=== PATIENT | female | born 1965 | race Hispanic/Latino ===

== ENCOUNTER → 2018-03-19 | Outpatient (CLI) | payer MEDICAID ==
[~2018-03-19] MED LIST: ACET-2743 PO; BUDE10.2 IH; CARV3.12 PO; CHOL100018 PO; FERS325 PO; FOLI1TAB82 PO; FURO80TA3 PO; MONT10TA24 PO; SODI650T PO; TRAM50TA4 PO
== END | disposition home or self-care (01) ==
LOC: SHCH 08:30
PROVIDERS: ATTEND Internal Medicine Cardiovascular Disease
DX: I51.7 Cardiomegaly (principal); I31.3 Pericardial effusion (noninflammatory)
CPT/HCPCS: 93306

== ENCOUNTER → 2018-03-26 | Outpatient (CLI) | payer MEDICAID ==
[~2018-03-26] MED LIST changes: +REGADENOSON 0.4 MG/5 ML PF SYG IVP SCH
== END | disposition home or self-care (01) ==
LOC: SHCH 08:23
PROVIDERS: ATTEND Internal Medicine Cardiovascular Disease
DX: I25.5 Ischemic cardiomyopathy (principal)
CPT/HCPCS: 78452; 93017; 96374; A9500 ×2; J2785

== ENCOUNTER 2018-04-19 15:10 | Inpatient (IN) | payer MEDICAID ==
[~2018-04-19] VITALS: Ht 160 cm; Wt 68.7 kg
[~2018-04-19 15:10] MED LIST changes: -REGADENOSON 0.4 MG/5 ML PF SYG IVP SCH
[2018-04-19] MEDS ORDERED: ACETAMINOPHEN EXTRA STRENGTH 500 MG TABLET ONE (15:35)
[2018-04-19 15:42] LABS: BASOPHILS % (AUTO) 0.4 % (0.0-5.0); HEMATOCRIT 33.8 % (36-48); LYMPHOCYTES % (AUTO) 13.3 % (21.0-51.0); MEAN CORPUSCULAR HEMOGLOBIN 31.2 pg (27.0-33.0); MEAN CORPUSCULAR HGB CONC 33.2 g/dL (32.0-36.0); MEAN CORPUSCULAR VOLUME 93.8 fL (79-99); MONOCYTES % (AUTO) 6.6 % (3.0-13.0); NEUTROPHILS % (AUTO) 76.7 % (40.0-77.0); PLATELET COUNT (AUTO) 199 K/uL (130-400); RED BLOOD CELL COUNT(AUTO) 3.61 MIL/uL (4.00-5.50); RED CELL DISTRIBUTION WIDTH 15.2 % (11.0-15.5); WHITE BLOOD COUNT (AUTO) 8.9 K/uL (4.8-10.8)
[2018-04-19 15:46] LABS: CREATININE 2.7 mg/dL (0.5-1.5); POTASSIUM 4.4 mmol/L (3.5-5.1)
[2018-04-19 15:50] LABS: ALBUMIN 3.5 g/dL (3.5-5.0); BILIRUBIN,TOTAL 0.5 mg/dL (0.2-1.0); TOTAL PROTEIN, SERUM 8.5 g/dL (6.0-8.3)
[2018-04-19 16:11] LABS: INR 0.98 (0.85-1.15); PARTIAL THROMBOPLASTIN TIME 29.9 SEC (26.3-35.5); PROTHROMBIN TIME 10.3 SEC (9.6-11.6)
[2018-04-19 17:44] LABS: APPEARANCE,URINE Clear (CLEAR); BILIRUBIN,URINE Negative (NEGATIVE); COLOR,URINE Yellow (YELLOW); GLUCOSE, URINE (UA) TRACE mg/dL (NEGATIVE); KETONES,URINE Negative (NEGATIVE); LEUKOCYTE ESTERASE ,URINE Negative (NEGATIVE); NITRATE,URINE Negative (NEGATIVE); OCCULT BLOOD,URINE Nonhemolyzed Trace (NEGATIVE); PROTEIN,URINE 300 (NEGATIVE); UROBILINOGEN,URINE 0.2 mg/dL (0.2-1.0)
[2018-04-19] MEDS ORDERED: SODIUM CHLORIDE 0.9% 1000ML 1,000 ML IV ONE (18:17)
[2018-04-19] MEDS ORDERED: CEFTRIAXONE SODIUM 1 GM ONE (18:17)
[2018-04-19 18:26] LABS: BACTERIA,URINE Rare /HPF (None Seen); WBC,URINE 0-1 /HPF (0-1)
[2018-04-19] MEDS: SODIUM CHLORIDE 0.9% 1000ML 1,000 ML IV SCH (19:15)
[2018-04-19] MEDS ORDERED: COMPOUND PO MISCELLANEOUS 1 EACH MISC MISC PRN (19:15)
[2018-04-19] MEDS ORDERED: FUROSEMIDE 10 MG/ML 2ML VIAL ONE (20:29)
[2018-04-19] MEDS ORDERED: AZITHROMYCIN 500MG+NS 250ML 250 ML IV ONE (20:30)
[2018-04-19] MEDS: OSELTAMIVIR SUSP 15 MG/ML (6 CAPS/29ML) PO SCH ×2 (21:00)
[2018-04-19] MEDS: INSULIN R PO SS1 SQ SCH (21:00)
[2018-04-19] MEDS ORDERED: PANTOPRAZOLE SODIUM 40 MG TABLET.DR PO ONE (22:02)
[2018-04-19] MEDS ORDERED: ENOXAPARIN SODIUM 30 MG/0.3 ML SQ ONE (22:02)
--- NOTE | 2018-04-19 23:05 | NUR ---
ADMIT PATIENT ARRIVED TO ROOM FROM ED AAOX3. NO COMPLAINTS OF CHEST PAIN OR SOB, BUT PATIENT DOES COMPLAIN OF CHRONIC BACK PAIN THAT SHE TAKES TRAMADOL [address] RADFORD PAGED TO INFORM THAT PATIENT WOULD LIKE ORDER TO CONTINUE TRAMADOL PO. AWAITING CALL BACK.
[2018-04-19 23:24] VITALS: BP 112/68
[2018-04-20] MEDS ORDERED: AZITHROMYCIN 500 MG in SODIUM CHLORIDE 0.9% 250 ML IV SCH ×2
[2018-04-20 04:32] LABS: HEMATOCRIT 27.2 % (36-48); MEAN CORPUSCULAR HEMOGLOBIN 31.5 pg (27.0-33.0); MEAN CORPUSCULAR HGB CONC 33.7 g/dL (32.0-36.0); MEAN CORPUSCULAR VOLUME 93.3 fL (79-99); PLATELET COUNT (AUTO) 150 K/uL (130-400); RED BLOOD CELL COUNT(AUTO) 2.92 MIL/uL (4.00-5.50); RED CELL DISTRIBUTION WIDTH 14.9 % (11.0-15.5); WHITE BLOOD COUNT (AUTO) 6.3 K/uL (4.8-10.8)
[2018-04-20 04:50] LABS: HEMOGLOBIN A1C 8.9 % (4.0-6.0)
[2018-04-20 04:55] LABS: ALBUMIN 2.7 g/dL (3.5-5.0); BILIRUBIN,TOTAL 0.3 mg/dL (0.2-1.0); CREATININE 2.8 mg/dL (0.5-1.5); MAGNESIUM 1.9 mg/dL (1.80-2.40); PHOSPHORUS 4.9 mg/dL (2.5-4.9); POTASSIUM 3.9 mmol/L (3.5-5.1); TOTAL PROTEIN, SERUM 6.7 g/dL (6.0-8.3)
[2018-04-20] MEDS: INSULIN R PO SS1 SQ SCH ×4 (05:59→20:22)
[2018-04-20 08:01] VITALS: BP 132/68
[2018-04-20] MEDS: FUROSEMIDE 10 MG/ML 2ML VIAL IV SCH ×2 (08:31→20:21)
[2018-04-20] MEDS: ENOXAPARIN SODIUM 30 MG/0.3 ML SQ SCH (08:32)
[2018-04-20] MEDS: PANTOPRAZOLE SODIUM 40 MG TABLET.DR PO SCH (08:32)
[2018-04-20] MEDS: SODIUM CHLORIDE 0.9% 1000ML 1,000 ML IV SCH ×2 (08:35→20:23)
[2018-04-20] MEDS: OSELTAMIVIR SUSP 15 MG/ML (6 CAPS/29ML) PO SCH ×4 (08:35→20:25)
[2018-04-20] MEDS ORDERED: FUROSEMIDE 10 MG/ML 2ML VIAL IVP SCH (09:00)
[2018-04-20 11:02] VITALS: BP 121/66
[2018-04-20 16:20] VITALS: BP 145/79
--- NOTE | 2018-04-20 17:00 | NUR ---
cm note met with patient and states resides athome with grandchildren, is independent with adls and self care. use cane for ambulation. has adult daughters and friends that assist. states no dc needs. dc plan is back to home. Addendum: 04/20/18 at 1702 by AG CHAMBERS CM Amended: Links added.
[2018-04-20] MEDS: AZITHROMYCIN 500MG+NS 250ML 250 ML IV SCH (17:56)
[2018-04-20] MEDS: CEFTRIAXONE SODIUM 1 GM IVP SCH (17:57)
[2018-04-20 19:06] VITALS: BP 153/84
[2018-04-20] MEDS: ACETAMINOPHEN 325 MG TAB PO PRN (20:22)
[2018-04-20 21:24] LABS: % IRON SATURATION 23.9 % (22-44)
[2018-04-20 23:04] VITALS: BP 139/82
[2018-04-21] MEDS: SODIUM CHLORIDE 0.9% 1000ML 1,000 ML IV SCH ×3 (01:15→20:35)
[2018-04-21 03:26] VITALS: BP 154/90
[2018-04-21 04:25] LABS: BASOPHILS % (AUTO) 0.8 % (0.0-5.0); HEMATOCRIT 30.8 % (36-48); LYMPHOCYTES % (AUTO) 25.8 % (21.0-51.0); MEAN CORPUSCULAR HEMOGLOBIN 31.7 pg (27.0-33.0); MEAN CORPUSCULAR HGB CONC 34.1 g/dL (32.0-36.0); MEAN CORPUSCULAR VOLUME 92.9 fL (79-99); NEUTROPHILS % (AUTO) 58.4 % (40.0-77.0); PLATELET COUNT (AUTO) 162 K/uL (130-400); RED BLOOD CELL COUNT(AUTO) 3.32 MIL/uL (4.00-5.50); RED CELL DISTRIBUTION WIDTH 14.9 % (11.0-15.5); WHITE BLOOD COUNT (AUTO) 5.4 K/uL (4.8-10.8)
[2018-04-21 04:42] LABS: MAGNESIUM 1.7 mg/dL (1.80-2.40); PHOSPHORUS 4.6 mg/dL (2.5-4.9); POTASSIUM 3.5 mmol/L (3.5-5.1)
[2018-04-21 05:12] LABS: % IRON SATURATION 23.7 % (22-44)
[2018-04-21] MEDS: INSULIN R PO SS1 SQ SCH ×4 (05:46→20:35)
[2018-04-21 07:45] VITALS: BP 160/85
[2018-04-21] MEDS: FUROSEMIDE 10 MG/ML 2ML VIAL IV SCH ×2 (09:01→20:35)
[2018-04-21] MEDS: PANTOPRAZOLE SODIUM 40 MG TABLET.DR PO SCH (09:01)
[2018-04-21] MEDS: ENOXAPARIN SODIUM 30 MG/0.3 ML SQ SCH (09:03)
[2018-04-21] MEDS: OSELTAMIVIR SUSP 15 MG/ML (6 CAPS/29ML) PO SCH ×4 (09:05→20:36)
[2018-04-21] MEDS: ACETAMINOPHEN 325 MG TAB PO PRN ×2 (09:13→20:42)
[2018-04-21 10:37] VITALS: BP 156/86
[2018-04-21] MEDS: AZITHROMYCIN 500MG+NS 250ML 250 ML IV SCH (16:01)
[2018-04-21 16:12] VITALS: BP 159/93
[2018-04-21] MEDS: CEFTRIAXONE SODIUM 1 GM IVP SCH (17:28)
[2018-04-21 19:14] VITALS: BP 150/87
[2018-04-21 23:22] VITALS: BP 127/70
[2018-04-22 03:05] VITALS: BP 135/73
[2018-04-22 05:34] LABS: HEMATOCRIT 29.7 % (36-48); MEAN CORPUSCULAR HEMOGLOBIN 31.8 pg (27.0-33.0); MEAN CORPUSCULAR VOLUME 93.6 fL (79-99); NUCLEATED RED BLOOD CELLS 0.1 % (0.0-0.19); PLATELET COUNT (AUTO) 173 K/uL (130-400); RED BLOOD CELL COUNT(AUTO) 3.17 MIL/uL (4.00-5.50); RED CELL DISTRIBUTION WIDTH 15.1 % (11.0-15.5); WHITE BLOOD COUNT (AUTO) 5.9 K/uL (4.8-10.8)
[2018-04-22 05:41] LABS: CREATININE 2.5 mg/dL (0.5-1.5); PHOSPHORUS 3.5 mg/dL (2.5-4.9); POTASSIUM 3.2 mmol/L (3.5-5.1)
[2018-04-22 05:50] LABS: BASOPHILS % (MANUAL) 4 % (0-2); EOSINOPHILS % (MANUAL) 9 % (1-6); LYMPHOCYTES % (MANUAL) 28 % (22-44); MONOCYTES % (MANUAL) 3 % (2-9); SEGMENTED NEUTROPHILS % 56 % (40-70)
[2018-04-22] MEDS: SODIUM CHLORIDE 0.9% 1000ML 1,000 ML IV SCH (05:50)
[2018-04-22] MEDS: INSULIN R PO SS1 SQ SCH ×4 (05:50→19:58)
[2018-04-22 05:51] LABS: MAN.DIFF COMMENT-IMPRESSION MANUAL DIFFERENTIAL
[2018-04-22 05:52] LABS: PLATELET MORPHOLOGY COMMENT ADEQUATE
[2018-04-22] MEDS: PANTOPRAZOLE SODIUM 40 MG TABLET.DR PO SCH (07:59)
[2018-04-22 08:00] VITALS: BP 140/76
[2018-04-22] MEDS: OSELTAMIVIR SUSP 15 MG/ML (6 CAPS/29ML) PO SCH ×4 (08:00→19:59)
[2018-04-22] MEDS: FUROSEMIDE 10 MG/ML 2ML VIAL IV SCH (08:00)
[2018-04-22] MEDS: ENOXAPARIN SODIUM 30 MG/0.3 ML SQ SCH (08:01)
[2018-04-22] MEDS: ONDANSETRON HCL 4 MG/2 ML VIAL IVP PRN (10:28)
[2018-04-22 11:00] VITALS: BP 157/88
[2018-04-22] MEDS ORDERED: POTASSIUM CHLORIDE 20 MEQ ERTAB PO SCH (14:00)
[2018-04-22] MEDS: AZITHROMYCIN 500MG+NS 250ML 250 ML IV SCH (15:50)
[2018-04-22 16:00] VITALS: BP 151/84
[2018-04-22] MEDS: FUROSEMIDE 40 MG TABLET PO SCH (16:45)
[2018-04-22] MEDS: CEFTRIAXONE SODIUM 1 GM IVP SCH (18:35)
[2018-04-22 19:10] VITALS: BP 124/79
[2018-04-22 23:26] VITALS: BP 147/84
[2018-04-23 03:14] VITALS: BP 134/76
[2018-04-23 05:35] LABS: CREATININE 2.7 mg/dL (0.5-1.5); POTASSIUM 4.1 mmol/L (3.5-5.1)
[2018-04-23 05:42] LABS: HEMATOCRIT 27.9 % (36-48); MEAN CORPUSCULAR HEMOGLOBIN 31.6 pg (27.0-33.0); MEAN CORPUSCULAR HGB CONC 33.6 g/dL (32.0-36.0); PLATELET COUNT (AUTO) 165 K/uL (130-400); RED BLOOD CELL COUNT(AUTO) 2.97 MIL/uL (4.00-5.50); RED CELL DISTRIBUTION WIDTH 15.3 % (11.0-15.5); WHITE BLOOD COUNT (AUTO) 5.8 K/uL (4.8-10.8)
[2018-04-23 06:03] LABS: BASOPHILS % (MANUAL) 1 % (0-2); EOSINOPHILS % (MANUAL) 10 % (1-6); LYMPHOCYTES % (MANUAL) 31 % (22-44); MONOCYTES % (MANUAL) 5 % (2-9); SEGMENTED NEUTROPHILS % 53 % (40-70)
[2018-04-23] MEDS: INSULIN R PO SS1 SQ SCH ×4 (06:03→21:16)
[2018-04-23 06:04] LABS: MAN.DIFF COMMENT-IMPRESSION MANUAL DIFFERENTIAL
[2018-04-23 08:09] VITALS: BP 158/84
[2018-04-23] MEDS: ENOXAPARIN SODIUM 30 MG/0.3 ML SQ SCH (08:40)
[2018-04-23] MEDS: PANTOPRAZOLE SODIUM 40 MG TABLET.DR PO SCH (08:40)
[2018-04-23] MEDS: FUROSEMIDE 40 MG TABLET PO SCH ×2 (08:40→16:12)
[2018-04-23 11:27] VITALS: BP 147/88
[2018-04-23] MEDS ORDERED: EPOETIN ALFA 10,000 UNIT/ML VIAL SQ SCH (14:30)
[2018-04-23] MEDS: OSELTAMIVIR SUSP 15 MG/ML (6 CAPS/29ML) PO SCH ×4 (14:44→20:35)
[2018-04-23] MEDS: AZITHROMYCIN 500MG+NS 250ML 250 ML IV SCH (16:12)
[2018-04-23 16:45] VITALS: BP 159/96
[2018-04-23] MEDS: CEFTRIAXONE SODIUM 1 GM IVP SCH (18:57)
[2018-04-23 19:00] VITALS: BP 157/93
[2018-04-23] MEDS: ONDANSETRON HCL 4 MG/2 ML VIAL IVP PRN (19:04)
[2018-04-23] MEDS ORDERED: GABA-529 PO (19:38)
[2018-04-23] MEDS ORDERED: CALCIUM CARBON 500MG CHEW TAB PO SCH (19:45)
[2018-04-23 23:00] VITALS: BP 153/85
[2018-04-24 03:00] VITALS: BP 132/72
[2018-04-24 04:52] LABS: HEMATOCRIT 28.3 % (36-48); MEAN CORPUSCULAR HEMOGLOBIN 32.1 pg (27.0-33.0); MEAN CORPUSCULAR HGB CONC 34.2 g/dL (32.0-36.0); MEAN CORPUSCULAR VOLUME 93.9 fL (79-99); PLATELET COUNT (AUTO) 151 K/uL (130-400); RED BLOOD CELL COUNT(AUTO) 3.01 MIL/uL (4.00-5.50); RED CELL DISTRIBUTION WIDTH 15.3 % (11.0-15.5); WHITE BLOOD COUNT (AUTO) 5.7 K/uL (4.8-10.8)
[2018-04-24 05:21] LABS: ALBUMIN 2.8 g/dL (3.5-5.0); BILIRUBIN,DIRECT 0.1 mg/dL (0.0-0.3); BILIRUBIN,TOTAL 0.2 mg/dL (0.2-1.0); CREATININE 2.6 mg/dL (0.5-1.5); PHOSPHORUS 3.7 mg/dL (2.5-4.9); POTASSIUM 3.7 mmol/L (3.5-5.1); TOTAL PROTEIN, SERUM 7.2 g/dL (6.0-8.3)
[2018-04-24] MEDS: INSULIN R PO SS1 SQ SCH ×3 (06:09→16:30)
[2018-04-24 07:56] VITALS: BP 150/83
[2018-04-24] MEDS: PANTOPRAZOLE SODIUM 40 MG TABLET.DR PO SCH (08:50)
[2018-04-24] MEDS: FUROSEMIDE 40 MG TABLET PO SCH ×2 (08:50→17:16)
[2018-04-24] MEDS: ENOXAPARIN SODIUM 30 MG/0.3 ML SQ SCH (08:50)
[2018-04-24] MEDS: OSELTAMIVIR SUSP 15 MG/ML (6 CAPS/29ML) PO SCH ×2 (10:00)
[2018-04-24 11:58] VITALS: BP 145/88
[2018-04-24 16:18] VITALS: BP 147/77
[2018-04-24] MEDS ORDERED: AZITHROMYCIN 250 MG TABLET PO SCH (18:30)
--- NOTE | 2018-04-24 18:30 | NUR ---
DISCHARGE DISCHARGE TEACHING DONE WITH PATIENT USING TEACHBACK METHOD, VERBALIZED UNDERSTANDING. NO NEW PRESCRIPTIONS. PT AWARE OF NEED TO SET UP APPOINTMENT WITH DR. RADFORD. IV REMOVED, CATH TIP INTACT. PENDING TO BE TRANSFERRED OUT VIA PRIVATE VEHICLE.
[2018-04-30] MEDS ORDERED: EPOETIN ALFA 10,000 UNIT/ML VIAL SQ SCH (09:00)
== END 2018-04-24 19:16 | disposition home or self-care (01) | DRG 469 ==
LOC: EDH 15:10 → EDHIP 15:11 → 4AH 23:24
PROVIDERS: ADMIT Internal Medicine Nephrology; ATTEND Internal Medicine Nephrology
DX: N17.9 Acute kidney failure, unspecified (principal); J18.9 Pneumonia, unspecified organism; E11.22 Type 2 diabetes mellitus with diabetic chronic kidney disease; E11.51 Type 2 diabetes mellitus with diabetic peripheral angiopathy without gangrene; E87.70 Fluid overload, unspecified; I12.9 Hypertensive chronic kidney disease with stage 1 through stage 4 chronic kidney disease, or unspecified chronic kidney disease; N18.9 Chronic kidney disease, unspecified; D64.9 Anemia, unspecified; I25.10 Atherosclerotic heart disease of native coronary artery without angina pectoris; E78.5 Hyperlipidemia, unspecified; J45.909 Unspecified asthma, uncomplicated; Z82.49 Family history of ischemic heart disease and other diseases of the circulatory system; Z83.3 Family history of diabetes mellitus; Z91.11 Patient's noncompliance with dietary regimen; Z91.19 Patient's noncompliance with other medical treatment and regimen
CPT/HCPCS: 36415; 71045; 80048; 80053; 80061; 80076; 81001; 82550; 82607; 82728; 82948; 83036; 83540; 83550; 83735; 84100; 84484; 85025; 85027; 85610; 85730; 87040; 87088; 87804; 93005; A4218; G0378; J0456; J0696; J0885; J1650; J1815; J1940; J2405; J7030

== ENCOUNTER 2018-05-09 07:43 | Day surgery (SDC) | payer MEDICAID ==
[2018-05-07 10:26] LABS: BASOPHILS % (AUTO) 0.8 % (0.0-5.0); EOSINOPHILS % (AUTO) 10.3 % (0.0-8.0); HEMATOCRIT 32.6 % (36-48); LYMPHOCYTES % (AUTO) 13.9 % (21.0-51.0); MEAN CORPUSCULAR HEMOGLOBIN 31.1 pg (27.0-33.0); MEAN CORPUSCULAR HGB CONC 32.2 g/dL (32.0-36.0); MEAN CORPUSCULAR VOLUME 96.7 fL (79-99); MONOCYTES % (AUTO) 5.4 % (3.0-13.0); NEUTROPHILS % (AUTO) 69.6 % (40.0-77.0); PLATELET COUNT (AUTO) 196 K/uL (130-400); RED BLOOD CELL COUNT(AUTO) 3.37 MIL/uL (4.00-5.50); RED CELL DISTRIBUTION WIDTH 15.3 % (11.0-15.5)
[2018-05-07 10:30] LABS: BILIRUBIN,URINE Negative (NEGATIVE); COLOR,URINE Yellow (YELLOW); GLUCOSE, URINE (UA) TRACE mg/dL (NEGATIVE); KETONES,URINE Negative (NEGATIVE); LEUKOCYTE ESTERASE ,URINE Negative (NEGATIVE); NITRATE,URINE Negative (NEGATIVE); OCCULT BLOOD,URINE Small (NEGATIVE); PH,URINE 5.5 (5.0-8.0); PROTEIN,URINE >=1000 (NEGATIVE); UROBILINOGEN,URINE 0.2 mg/dL (0.2-1.0)
[2018-05-07 10:36] VITALS: BP 162/88
[2018-05-07 10:38] LABS: APPEARANCE,URINE CLEAR (CLEAR)
[2018-05-07 10:40] LABS: POTASSIUM 4.3 mmol/L (3.5-5.1)
[2018-05-07 10:43] LABS: BACTERIA,URINE Rare /HPF (None Seen); RBC,URINE 0-1 /HPF (0-1); SQUAMOUS EPITHELIAL CELL,UR Few /HPF (0-2); WBC,URINE 0-1 /HPF (0-1)
[2018-05-07 10:47] LABS: INR 1.07 (0.85-1.15); PARTIAL THROMBOPLASTIN TIME 29.5 SEC (26.3-35.5); PROTHROMBIN TIME 11.2 SEC (9.6-11.6)
--- NOTE | 2018-05-08 10:17 | NUR ---
NOTE REPORTED UA, AND BUN/CREAT TO KOBI TEIXEIRA, NO FURTHER ORDERS GIVEN.
[2018-05-09] VITALS (11 sets, daily range): BP systolic 138–163; BP diastolic 74–88
[~2018-05-09] VITALS: Ht 160 cm; Wt 71.0 kg
[~2018-05-09 07:43] MED LIST changes: -ACET-2743 PO; +INSLAN SQ
--- NOTE | 2018-05-09 08:30 | NUR ---
PATIENT ARRIVED IN CALM COOPERATIVE DISPOSITION,NO COMPLAINTS OF PAIN OR DISCOMFORT,PT. VERBALIZES NEEDS HELP TO WALK ,DUE TO UNSTEADY GAIT,USES CANE REGULARLY ,DID NOT BRING TO HOSPITAL,EDUCATED PT AND SPOUSE ON NURSE CALL SYSTEM AND TOLD THEM NOT TO GET UP WITH OUT ASSISTANCE FROM STAFF,VERBALIZES UNDERSTANDING Addendum: 05/09/18 at 1447 by BRI BOWER LVN LVN NOTED REDDISH DISCOLORATION TO RT AND LT SIDE OF ABDOMEN,STATES WAS IN HOSPITAL 2 WEEKS AGO AND WAS GETTING INJECTIONS TO ABDOMEN,,STATES ALREADY HAD THE ONE TO RT INNER THIGH BEFORE COMING TO HOSPITAL
--- NOTE | 2018-05-09 09:20 | NUR ---
IV STARTED IV TO LT HAND WITH # 20 TO LT HAND AFTER 2 ATTEMPTS,PT RESTING COMFORTABLY ,CALL HUFF IN REACH
[2018-05-09] MEDS ORDERED: CARV12.511 PO (09:33)
[2018-05-09] MEDS ORDERED: SODIUM BICARB 50MEQ 50ML VIAL ONE (10:12)
[2018-05-09] MEDS ORDERED: IOHEXOL 350 MG/ML 100ML INFUS..BTL IV ONE (10:13)
[2018-05-09] MEDS ORDERED: HEPARIN SODIUM 1000UNIT/ML 10ML VIAL ONE (10:13)
[2018-05-09] MEDS ORDERED: MIDAZOLAM HCL 1 MG/ML 2ML VIAL ONE (10:13)
[2018-05-09] MEDS ORDERED: NITROGLYCERIN 5 MG/ML 10 ML VIAL IV ONE (10:13)
[2018-05-09] MEDS ORDERED: MEPERIDINE-PF 25 MG/ML SYG ONE (10:13)
[2018-05-09] MEDS ORDERED: LIDOCAINE HCL 2% 20ML ONE (10:13)
[2018-05-09] MEDS ORDERED: IOHEXOL-350 50ML VIAL IV ONE (10:13)
[2018-05-09] MEDS ORDERED: ASPI-1197 PO (10:29)
--- NOTE | 2018-05-09 10:30 | NUR ---
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
[2018-05-09] MEDS ORDERED: SODIUM CHLORIDE 0.9% 1000ML 1,000 ML IV ONE (10:32)
[2018-05-09] MEDS ORDERED: DEXTROSE 50%-WATER 50 ML DISP.SYRIN IV ONE (10:39)
[2018-05-09] MEDS ORDERED: SODIUM CHLORIDE 0.9% 10 ML VIAL IVP SCH (11:15)
[2018-05-09] MEDS ORDERED: DEXTROSE 50%-WATER 50 ML DISP.SYRIN IV PRN (11:15)
[2018-05-09] MEDS ORDERED: GLUCAGON 1MG KIT 1 MG ML IM PRN (11:15)
--- NOTE | 2018-05-09 11:25 | NUR ---
DR WILSON SPEAKS WITH SPOUSE AFTER PROCEDURE AND THE PLAN POST CATH ,SPOUSE VERBALIZES UNDERSTANDING
[2018-05-09] MEDS ORDERED: INSULIN HUMULIN R 100 UNIT/ML 3ML SQ SCH (11:30)
--- NOTE | 2018-05-09 12:34 | NUR ---
DR RADFORD OFFICE CALLED ,WITH A PATIENT PER ANDIE ,WILL GIVE HIM MESSAGE TO RETURN CALL
--- NOTE | 2018-05-09 12:35 | NUR ---
DR RADFORD RETURNS CALL,SPOKE WITH MS THERESA ORNELAS AND MADE HIM AWARE OF PT HAD A HEART CATH TODAY ,WANTS TO HAVE CATH RESULTS AND TO HAVE PT FOLLOW UP NEXT WEEK
--- NOTE | 2018-05-09 13:10 | NUR ---
URINE LOGGED ROLL PT AND PUT ON BED BUENROSTRO ,VOIDS CLEAR YELLOW URINE [500 MLS],
--- NOTE | 2018-05-09 13:12 | NUR ---
DIET JUST ATE APPROXIMATELY 75 % OF LUNCH,NO COMPLAINTS ,.CALL HUFF IN REACH
--- NOTE | 2018-05-09 14:55 | NUR ---
STATES UNCOMFORTABLE BEING ON HER BACK,LOG ROLL AND REPOSITIONED PATIENT WITH 2 NURSES ,APPLYING 2 PILLOWS ON BACK,STATES IS COMFORTABLE ,DAUGHTER AT BEDSIDE ,CALL HUFF IN REACH
--- NOTE | 2018-05-09 15:20 | NUR ---
LOGGED ROLL WITH 2 NURSES AND ASSISTED HER WITH BEDPAN,VOIDED 200 ML AND HAD ONE FORMED BROWN STOOL,,NO COMPLAINTS ,CALL HUFF IN REACH,SITE TO RT GROIN ,WITH NO BLEEDING ,NO HEMATOMA
--- NOTE | 2018-05-09 16:00 | NUR ---
CATH REPORT AND CORONARY DIAGRAM FAXED TO DR RADFORD
--- NOTE | 2018-05-09 17:05 | NUR ---
ASSISTED UP TO SIDE OF BED ,DOES WELL ,RT GROIN WITH NO HEMATOMA ,NO BLEEDING,INSTRUCTED PATIENT ON HOW TO CHECK SITE AT HOME ,WHILE WAITING FOR DAUGHTER TO TAKE HER HOME,RETURNS DEMONSTRATION ,ASSISTED HER TO GET DRESSED ,UP TO CHAIR,CALL HUFF IN REACH
--- NOTE | 2018-05-09 17:40 | NUR ---
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
== END 2018-05-09 17:45 | disposition home or self-care (01) ==
LOC: DAH 07:43
PROVIDERS: ATTEND Internal Medicine Cardiovascular Disease
DX: I25.118 Atherosclerotic heart disease of native coronary artery with other forms of angina pectoris (principal); I25.5 Ischemic cardiomyopathy; I13.0 Hypertensive heart and chronic kidney disease with heart failure and stage 1 through stage 4 chronic kidney disease, or unspecified chronic kidney disease; N18.3 Chronic kidney disease, stage 3 (moderate); I50.42 Chronic combined systolic (congestive) and diastolic (congestive) heart failure; Z79.4 Long term (current) use of insulin; Z79.84 Long term (current) use of oral hypoglycemic drugs; E78.5 Hyperlipidemia, unspecified; I21.3 ST elevation (STEMI) myocardial infarction of unspecified site
CPT/HCPCS: 36415; 71045; 80048; 81001; 82948 ×2; 85025; 85610; 85730; 93005; 93458; A4606; C1760; C1894; J1644; J2175; J2250; J3490 ×3; J7030; J7070; Q9965; Q9967; 99156; 99157

== ENCOUNTER 2018-07-18 08:04 | Observation (INO) | payer MEDICAID ==
[2018-07-16 11:50] VITALS: BP 173/89
[2018-07-16 12:09] LABS: BASOPHILS % (AUTO) 0.5 % (0.0-5.0); EOSINOPHILS % (AUTO) 3.5 % (0.0-8.0); HEMATOCRIT 37.8 % (36-48); LYMPHOCYTES % (AUTO) 18.6 % (21.0-51.0); MEAN CORPUSCULAR HEMOGLOBIN 30.4 pg (27.0-33.0); MEAN CORPUSCULAR HGB CONC 33.2 g/dL (32.0-36.0); MEAN CORPUSCULAR VOLUME 91.7 fL (79-99); MONOCYTES % (AUTO) 6.6 % (3.0-13.0); NEUTROPHILS % (AUTO) 70.8 % (40.0-77.0); PLATELET COUNT (AUTO) 189 K/uL (130-400); RED BLOOD CELL COUNT(AUTO) 4.13 MIL/uL (4.00-5.50); RED CELL DISTRIBUTION WIDTH 13.2 % (11.0-15.5); WHITE BLOOD COUNT (AUTO) 6.6 K/uL (4.8-10.8)
[2018-07-16 12:19] LABS: INR 0.98 (0.85-1.15); PARTIAL THROMBOPLASTIN TIME 29.8 SEC (26.3-35.5); PROTHROMBIN TIME 10.3 SEC (9.6-11.6)
[2018-07-16 12:21] LABS: CREATININE 3.7 mg/dL (0.5-1.5); POTASSIUM 3.5 mmol/L (3.5-5.1)
--- NOTE | 2018-07-16 14:00 | NUR ---
LLUVIA JAMES NOTIFIED OF ABNORMAL BUN 87 AND CREAT 3.7. NO NEW ORDERS RECEIVED.
[~2018-07-18] VITALS: Ht 160 cm; Wt 68.9 kg
[2018-07-18] VITALS (12 sets, daily range): BP systolic 104–168; BP diastolic 62–78
[~2018-07-18 08:04] MED LIST changes: +AMLO2.5T4 PO; +ASPI-1181 PO; +ATOR20TA65 PO; +CARV12.511 PO; -CARV3.12 PO; +HYDRALAZINE PO
[2018-07-18] MEDS ORDERED: INSLAN SQ (09:25)
[2018-07-18] MEDS ORDERED: IODIXANOL 320 MG/ML 100 ML VIAL ONE (10:34)
[2018-07-18] MEDS ORDERED: BUPIVACAINE/PF 0.25% 30ML VIAL IJ ONE (10:34)
[2018-07-18] MEDS ORDERED: CEFAZOLIN SODIUM 1 GM VIAL ONE ×2 (10:34→10:36)
[2018-07-18] MEDS ORDERED: MEPERIDINE-PF 25 MG/ML SYG ONE ×2 (10:35→11:10)
[2018-07-18] MEDS ORDERED: MIDAZOLAM HCL 1 MG/ML 2ML VIAL ONE ×2 (10:35→11:11)
[2018-07-18] MEDS ORDERED: LIDOCAINE HCL 1% MDV 50ML VIAL ONE (10:35)
[2018-07-18] MEDS ORDERED: OCTYL 2-CYANOACRYLATE 1 EACH TP ONE (11:49)
[2018-07-18] MEDS ORDERED: ACETAMINOPHEN-CODEINE 300/30MG TAB PO PRN (12:15)
[2018-07-18] MEDS ORDERED: TEMAZEPAM 30 MG CAP PO PRN (12:15)
[2018-07-18] MEDS ORDERED: ONDANSETRON HCL 4 MG/2 ML VIAL IV PRN (12:15)
[2018-07-18] MEDS ORDERED: TRAMADOL HCL 50 MG TABLET PO SCH (12:30)
--- NOTE | 2018-07-18 12:50 | NUR ---
STATUS PT RECEIVED FROM [employer] VIA BED, S/P SINGLE CHAMBER AICD BY DR Sri WILSON. LT UPPER CHEST PRESSURE DSG, DRY & INTACT. NO BLEEDING, NO HEMATOMA NOTED. DENIES INCISIONAL PAIN @ THIS TIME. ARM PRECAUTIONS REVIEWED. STATES UNDERSTANDING. SLING TO LT ARM. PT & FAMILY INFORMED TO MAINTAIN BEDREST X 6 HRS. A/O X 3. NO SOB. NO DISTRESS NOTED. DENIES CHEST PAIN OR DISCOMFORT. DENIES PALPITATIONS. TELE: SR 70s. DENIES N/V AND/OR DIARRHEA. ORIENTED TO RM. INSTRUCTED TO CALL FOR ASSISTANCE. CALL REFUGIO W/IN REACH.
[2018-07-18] MEDS: INSULIN HUMULIN R 100 UNIT/ML 3ML SQ SCH ×2 (16:30→21:00)
[2018-07-18] MEDS: ACETAMINOPHEN-CODEINE 300/30MG TAB PO PRN ×2 (16:59→23:48)
[2018-07-18] MEDS ORDERED: FUROSEMIDE 80 MG TABLET PO SCH (17:00)
[2018-07-18] MEDS: FUROSEMIDE 80 MG TABLET PO SCH (17:32)
--- NOTE | 2018-07-18 18:30 | NUR ---
STATUS 6 HR BEDREST COMPLETE. LT UPPER CHEST PRESSURE DSG DRY & INTACT. ARM PRECAUTIONS REINFORCED. SLING TO LT ARM. DENIES INCISIONAL PAIN @ THIS TIME. PT ASSISTED TO GET OOB TO RESTRM. TOLERATED WELL. NO DISTRESS NOTED. DENIES LIGHTHEADEDNESS AND/OR DIZZINESS. INSTRUCTED TO CALL FOR ASSISTANCE. CALL REFUGIO W/IN REACH.
--- NOTE | 2018-07-18 20:35 | NUR ---
S/P AICD PLACEMENT. REMINDED PATIENT OF LT ARM RESTRICTIONS X 6 WEEKS. PATIENT VERBALIZED UNDERSTANDING. CALL LIGHT WITHIN REACH.
[2018-07-18] MEDS ORDERED: INSULIN GLARGINE 100 UNITS/ML 10 ML VIAL SQ SCH (21:00)
[2018-07-18] MEDS ORDERED: MONTELUKAST SODIUM 10 MG TAB PO SCH (21:00)
[2018-07-18] MEDS ORDERED: ATORVASTATIN CALCIUM 20 MG TABLET PO SCH (21:00)
[2018-07-18] MEDS: SODIUM BICARBONATE 650 MG TAB PO SCH (21:02)
[2018-07-18] MEDS: CARVEDILOL 12.5 MG TABLET PO SCH (21:03)
[2018-07-18] MEDS: HYDRALAZINE HCL 10 MG TABLET PO SCH (21:03)
[2018-07-19 00:49] VITALS: BP 137/74
[2018-07-19 04:57] VITALS: BP 124/73
[2018-07-19] MEDS: INSULIN HUMULIN R 100 UNIT/ML 3ML SQ SCH ×2 (06:51→11:20)
[2018-07-19 07:00] VITALS: BP 138/75
--- NOTE | 2018-07-19 07:45 | NUR ---
AM ASSESSMENT PT LAYING IN BED, HOB ELEVATED 30, WATCHING TV. A/O X 3. NO SOB. NO DISTRESS NOTED. DENIES CHEST PAIN OR DISCOMFORT. DENIES PALPITATIONS. C/O INCISIONAL PAIN. PO PAIN MED TO BE GIVEN. TELE: SR 70s. DENIES N/V AND/OR DIARRHEA. LT UPPER CHEST PRESSURE DSG REMOVED. TELFA & OPSITE DRY & INTACT. NO BLEEDING, NO HEMATOMA NOTED. SLING TO LT ARM. ARM PRECAUTIONS REINFORCED. UP W/ASSISTANCE. CALL HUFF W/IN REACH.
[2018-07-19] MEDS: FUROSEMIDE 80 MG TABLET PO SCH (08:03)
[2018-07-19] MEDS: SODIUM BICARBONATE 650 MG TAB PO SCH (08:03)
[2018-07-19] MEDS: CARVEDILOL 12.5 MG TABLET PO SCH (08:03)
[2018-07-19] MEDS: HYDRALAZINE HCL 10 MG TABLET PO SCH (08:03)
[2018-07-19] MEDS: ACETAMINOPHEN-CODEINE 300/30MG TAB PO PRN (08:05)
[2018-07-19] MEDS ORDERED: AMLODIPINE BESYLATE 2.5 MG TAB PO SCH (09:00)
[2018-07-19 11:00] VITALS: BP 143/75
--- NOTE | 2018-07-19 11:00 | NUR ---
CM NOTE CHART REVIEWED, NO CONCERNS VOICED BY PT OR PRIMARY RN, INITIAL ASSESSMENT DEFERRED Addendum: 07/19/18 at 1616 by DORON DUDLEY RN CM Amended: Links added.
[2018-07-19] MEDS ORDERED: ASPIRIN 81 MG EC TAB PO SCH (12:00)
--- NOTE | 2018-07-19 13:30 | NUR ---
DISCHARGE VERBAL & WRITTEN DISCHARGE INSTRUCTIONS REVIEWED & GIVEN TO PT. QUESTIONS ENCOURAGED & CLARIFIED. PROPER CARE & ACTIVITY AFTER ICD PLACEMENT REVIEWED. NEW PRESCRIBED MEDICATIONS REVIEWED. PRESCRIPTION GIVEN TO PT; SIGNED COPY PLACED IN CHART. IV DISCONTINUED. TELE CALEB REMOVED. PT & FAMILY TO GATHER PERSONAL BELONGINGS. WILL NOTIFY STAFF WHEN READY TO BET TAKEN TO PRIVATE VEHICLE.
--- NOTE | 2018-07-19 14:00 | NUR ---
DISCHARGE PT TAKEN TO PRIVATE VEHICLE VIA WC BY MYSELF, Gloria THAPA RN, ACCOMPANIED BY DAUGHTER. NO DISTRESS NOTED.
== END 2018-07-19 14:00 | disposition home or self-care (01) ==
LOC: DAH 08:04 → DAHIP 08:05 → 2AH 13:10
PROVIDERS: ADMIT Internal Medicine; ATTEND Internal Medicine
DX: I25.5 Ischemic cardiomyopathy (principal); E11.22 Type 2 diabetes mellitus with diabetic chronic kidney disease; I12.0 Hypertensive chronic kidney disease with stage 5 chronic kidney disease or end stage renal disease; N18.5 Chronic kidney disease, stage 5; J44.9 Chronic obstructive pulmonary disease, unspecified; I25.10 Atherosclerotic heart disease of native coronary artery without angina pectoris; F02.80 Dementia in other diseases classified elsewhere, unspecified severity, without behavioral disturbance, psychotic disturbance, mood disturbance, and anxiety; G30.9 Alzheimer's disease, unspecified; Z95.810 Presence of automatic (implantable) cardiac defibrillator; Z79.4 Long term (current) use of insulin
CPT/HCPCS: 33249; 36415; 71046; 80048; 82948 ×5; 85025; 85610; 85730; 93005; A4606; C1722; C1894; C1895; G0378 ×29; J0690 ×2; J2175 ×2; J2250 ×2; J3490 ×2; 99156; 99157; Q9967

== ENCOUNTER → 2019-03-12 | Outpatient (CLI) | payer MEDICAID ==
[~2019-03-12] MED LIST changes: -BUDE10.2 IH; -CHOL100018 PO; -FERS325 PO; -FOLI1TAB82 PO
== END | disposition home or self-care (01) ==
LOC: SHCH 11:05
PROVIDERS: ATTEND Internal Medicine Cardiovascular Disease
DX: I65.23 Occlusion and stenosis of bilateral carotid arteries (principal)
CPT/HCPCS: 93880

== ENCOUNTER 2019-09-18 20:22 | Emergency (ER) | payer MEDICAID ==
[~2019-09-18 20:22] MED LIST changes: -ASPI-1181 PO; +ASPI-1443 PO; -MONT10TA24 PO; +MONT10TA26 PO
[2019-09-18 21:27] LABS: BASOPHILS % (AUTO) 0.1 % (0.0-5.0); HEMATOCRIT 39.4 % (36-48); LYMPHOCYTES % (AUTO) 11.2 % (21.0-51.0); MEAN CORPUSCULAR HEMOGLOBIN 31.8 pg (27.0-33.0); MEAN CORPUSCULAR HGB CONC 32.5 g/dL (32.0-36.0); MEAN CORPUSCULAR VOLUME 97.8 fL (79-99); MONOCYTES % (AUTO) 7.5 % (3.0-13.0); NEUTROPHILS % (AUTO) 76.8 % (40.0-77.0); PLATELET COUNT (AUTO) 204 K/uL (130-400); RED BLOOD CELL COUNT(AUTO) 4.03 MIL/uL (4.00-5.50); RED CELL DISTRIBUTION WIDTH 14.1 % (11.0-15.5); WHITE BLOOD COUNT (AUTO) 7.4 K/uL (4.8-10.8)
[2019-09-18 21:41] LABS: CREATININE 5.9 mg/dL (0.5-1.5); POTASSIUM 3.9 mmol/L (3.5-5.1)
[2019-09-18 21:45] LABS: ALBUMIN 3.6 g/dL (3.5-5.0); BILIRUBIN,TOTAL 0.6 mg/dL (0.2-1.0); TOTAL PROTEIN, SERUM 8.6 g/dL (6.0-8.3)
[2019-09-18] MEDS ORDERED: TETANUS/DIPHTHERIA TOXOID [ADULT] 0.5 ML VIAL IM ONE (21:55)
[2019-09-18 22:01] LABS: INR 1.01 (0.85-1.15); PARTIAL THROMBOPLASTIN TIME 28.5 SEC (26.3-35.5); PROTHROMBIN TIME 10.9 SEC (9.6-11.6)
[2019-09-18] MEDS ORDERED: TRAMADOL HCL 50 MG TABLET ONE (23:07)
== END 2019-09-19 00:30 | disposition home or self-care (01) ==
LOC: EDH 20:22
DX: S82.151A Displaced fracture of right tibial tuberosity, initial encounter for closed fracture (principal); S80.212A Abrasion, left knee, initial encounter; S80.211A Abrasion, right knee, initial encounter; E11.65 Type 2 diabetes mellitus with hyperglycemia; I12.0 Hypertensive chronic kidney disease with stage 5 chronic kidney disease or end stage renal disease; E11.22 Type 2 diabetes mellitus with diabetic chronic kidney disease; N18.6 End stage renal disease; I25.10 Atherosclerotic heart disease of native coronary artery without angina pectoris; Z99.2 Dependence on renal dialysis; W18.39XA Other fall on same level, initial encounter; Y93.89 Activity, other specified; Y92.89 Other specified places as the place of occurrence of the external cause; Y99.8 Other external cause status
CPT/HCPCS: 29505; 36415; 73560; 80053; 82550; 84484; 85025; 85610; 85730; 90471; 90714; 93005